=== PATIENT | female | born 2000 | race Caucasian/White ===

== ENCOUNTER 2020-12-02 05:24 | Inpatient (IN) | payer BC ==
[~2020-12-02] VITALS: Ht 160 cm; Wt 104.5 kg
[2020-12-02 05:31] VITALS: BP 146/62
[2020-12-02] MEDS ORDERED: PREN1TAB62 PO (05:39)
[2020-12-02] MEDS ORDERED: SERT100T32 PO (05:39)
[2020-12-02] MEDS ORDERED: MAGN400T36 PO (05:40)
[2020-12-02] MEDS ORDERED: MAGNESIUM SULFATE PMX 4GM/100M 100 ML ONE (05:59)
[2020-12-02] MEDS ORDERED: BETAMETHASONE 6 MG/ML, 5ML IM ONE (05:59)
[2020-12-02] MEDS ORDERED: MAGNESIUM SULF. PMX 20GM/500ML 500 ML IV ONE (05:59)
[2020-12-02] MEDS ORDERED: LACTATED RINGERS 1,000 ML IV PRN (06:00)
[2020-12-02] MEDS ORDERED: PENICILLIN GK 5,000,000 UNITS in DEXTROSE 5% 100 ML IVPB ONE (06:00)
[2020-12-02] MEDS ORDERED: MAGNESIUM SULFATE PMX 2GM/50ML 50 ML IVPB ONE (06:00)
[2020-12-02] MEDS ORDERED: MAGNESIUM SULFATE PMX 4GM/100M 100 ML IVPB ONE (06:00)
[2020-12-02] MEDS: PENICILLIN GK 2,500,000 UNITS in DEXTROSE 5% 100 ML IVPB SCH ×5 (06:00→22:56)
[2020-12-02] MEDS: BETAMETHASONE 6 MG/ML, 5ML IM SCH (06:15)
[2020-12-02 06:18] LABS: BASOPHILS % (AUTO) 1 % (0-1); EOSINOPHILS % (AUTO) 0 % (1-7); LYMPHOCYTES % (AUTO) 16 % (22-44); MEAN CORPUSCULAR HEMOGLOBIN 30.8 pg (27.0-34.8); MEAN CORPUSCULAR HGB CONC 34.4 g/dL (32.4-35.8); MEAN PLATELET VOLUME 8.3 fL (7.4-10.4); MONOCYTES % (AUTO) 6 % (2-9); NEUTROPHILS % (AUTO) 77 % (42-75); PLATELET COUNT 274 x10^3/uL (130-400); RED BLOOD COUNT 4.09 x10^6/uL (3.82-5.3); RED CELL DISTRIBUTION WIDTH 13.1 % (9.6-15.2)
[2020-12-02 06:20] LABS: MD NO
[2020-12-02] MEDS ORDERED: FENTANYL PF 100 MCG/2ML ONE (06:21)
[2020-12-02] MEDS ORDERED: NEWBORN KIT ONE (06:26)
[2020-12-02] MEDS ORDERED: FENTANYL PF 100 MCG/2ML IV PRN (06:30)
[2020-12-02] MEDS: FENTANYL PF 100 MCG/2ML IVPush PRN ×4 (06:30→11:01)
[2020-12-02 06:32] LABS: MICROSCOPIC INDICATED
[2020-12-02] MEDS: LACTATED RINGERS 1,000 ML IV PRN ×2 (06:35→17:32)
[2020-12-02 06:48] LABS: AMPHETAMINE SCREEN, URINE Negative (Negative); BARBITURATE SCREEN, URINE Negative (Negative); BENZODIAZEPINE SCREEN, URINE Negative (Negative); CANNABINOID SCREEN, URINE Positive (Negative); COCAINE SCREEN, URINE Negative (Negative); METHADONE SCREEN, URINE Negative (Negative); OPIATE SCREEN, URINE Negative (Negative)
[2020-12-02] MEDS: MAGNESIUM SULF. PMX 20GM/500ML 500 ML IV SCH ×2 (06:55→15:26)
[2020-12-02] MEDS ORDERED: ONDANSETRON 2MG/ML, 2ML IVPush PRN (07:00)
[2020-12-02 07:10] LABS: ALANINE AMINOTRANSFERASE 17 U/L (12-78); ANION GAP 11 mmol/L (5-15); CHLORIDE 108 mmol/L (98-107); CREATININE 0.58 mg/dL (0.55-1.02)
[2020-12-02 07:11] LABS: BILIRUBIN, DIRECT < 0.1 mg/dL (0.1-0.2)
[2020-12-02 07:13] LABS: ALKALINE PHOSPHATASE 231 U/L (45-117); BILIRUBIN,TOTAL 0.2 mg/dL (0.2-1.0); TOTAL PROTEIN 6.9 g/dL (6.4-8.2)
[2020-12-02] MEDS ORDERED: CALCIUM CARBONATE 500 MG TAB.CHEW ONE (08:08)
[2020-12-02] MEDS: CALCIUM CARBONATE 500 MG TAB.CHEW PO PRN ×3 (08:10→23:35)
[2020-12-02 08:12] LABS: CREATININE,URINE RANDOM 82.3 mg/dL
[2020-12-02] MEDS ORDERED: DIPH25CA61 PO (10:01)
[2020-12-02] MEDS ORDERED: ACETAMINOPHEN 325 MG TABLET ONE (13:10)
[2020-12-02] MEDS ORDERED: ASPI-963 PO (13:13)
[2020-12-02] MEDS ORDERED: FERR324T23 PO (13:14)
[2020-12-02] MEDS ORDERED: ACETAMINOPHEN 325 MG TABLET PO PRN (13:30)
[2020-12-02] MEDS ORDERED: BUTALB/APAP/CAFFEINE 50MG/325MG/40MG ONE (18:03)
[2020-12-02] MEDS: BUTALB/APAP/CAFFEINE 50MG/325MG/40MG PO PRN ×2 (18:06→23:30)
[2020-12-02 20:00] VITALS: BP 135/73
[2020-12-02] MEDS ORDERED: DIPHENHYDRAMINE 25 MG CAPSULE ONE (22:11)
[2020-12-02] MEDS: DIPHENHYDRAMINE 50 MG CAPSULE PO PRN (22:53)
[2020-12-02] MEDS ORDERED: PRENATAL VIT/IRON/FA 1 EACH TABLET ONE (22:54)
[2020-12-03] MEDS: MAGNESIUM SULF. PMX 20GM/500ML 500 ML IV SCH (00:57)
[2020-12-03] MEDS: PENICILLIN GK 2,500,000 UNITS in DEXTROSE 5% 100 ML IVPB SCH ×6 (02:53→21:52)
[2020-12-03] MEDS: BETAMETHASONE 6 MG/ML, 5ML IM SCH (06:16)
[2020-12-03] MEDS: BUTALB/APAP/CAFFEINE 50MG/325MG/40MG PO PRN ×3 (06:20→19:31)
[2020-12-03 07:45] VITALS: BP 114/67
[2020-12-03 08:43] LABS: ALANINE AMINOTRANSFERASE 19 U/L (12-78); ALBUMIN 2.8 g/dL (3.4-5.0); ANION GAP 7 mmol/L (5-15); CHLORIDE 107 mmol/L (98-107); CREATININE 0.58 mg/dL (0.55-1.02)
[2020-12-03 08:45] LABS: ALKALINE PHOSPHATASE 216 U/L (45-117); BILIRUBIN,TOTAL 0.2 mg/dL (0.2-1.0); TOTAL PROTEIN 6.3 g/dL (6.4-8.2)
[2020-12-03 08:57] LABS: CALCIUM 7.7 mg/dL (8.5-10.1)
[2020-12-03] MEDS: SERTRALINE 100MG TABLET PO SCH (08:57)
[2020-12-03] MEDS ORDERED: D5%-LACTATED RINGERS 1,000 ML IV SCH (09:00)
[2020-12-03] MEDS: CALCIUM CARBONATE 500 MG TAB.CHEW PO PRN ×3 (09:01→21:53)
[2020-12-03 09:08] LABS: BASOPHILS % (AUTO) 0 % (0-1); EOSINOPHILS % (AUTO) 0 % (1-7); LYMPHOCYTES % (AUTO) 12 % (22-44); MEAN CORPUSCULAR HEMOGLOBIN 31.4 pg (27.0-34.8); MEAN CORPUSCULAR HGB CONC 34.1 g/dL (32.4-35.8); MEAN PLATELET VOLUME 8.9 fL (7.4-10.4); MONOCYTES % (AUTO) 7 % (2-9); NEUTROPHILS % (AUTO) 81 % (42-75); PLATELET COUNT 272 x10^3/uL (130-400); RED BLOOD COUNT 3.64 x10^6/uL (3.82-5.3); RED CELL DISTRIBUTION WIDTH 13.1 % (9.6-15.2)
[2020-12-03 09:12] LABS: MD NO
[2020-12-03] MEDS ORDERED: FAMOTIDINE 20 MG TABLET ONE (10:17)
[2020-12-03] MEDS: FAMOTIDINE 20 MG TABLET PO SCH ×2 (10:18→20:45)
[2020-12-03] MEDS ORDERED: DOCUSATE 100 MG CAPSULE ONE (17:39)
[2020-12-03] MEDS: DOCUSATE 100 MG CAPSULE PO PRN (17:40)
[2020-12-03] MEDS: SODIUM CHLORIDE FLUSH 3ML SYRINGE IVF SCH (19:32)
[2020-12-03] MEDS: PRENATAL VIT/IRON/FA 1 EACH TABLET PO SCH (20:45)
[2020-12-03] MEDS ORDERED: DIPHENHYDRAMINE 25 MG CAPSULE ONE (21:51)
[2020-12-03] MEDS: DIPHENHYDRAMINE 50 MG CAPSULE PO PRN (21:53)
[2020-12-04] MEDS: FENTANYL PF 100 MCG/2ML IVPush PRN ×4 (02:45→20:49)
[2020-12-04] MEDS: PENICILLIN GK 2,500,000 UNITS in DEXTROSE 5% 100 ML IVPB SCH ×4 (05:40→16:00)
[2020-12-04] MEDS: LACTATED RINGERS 1,000 ML IV PRN (08:47)
[2020-12-04] MEDS: SERTRALINE 100MG TABLET PO SCH (09:08)
[2020-12-04] MEDS: FAMOTIDINE 20 MG TABLET PO SCH ×2 (09:08→22:32)
[2020-12-04] MEDS: CALCIUM CARBONATE 500 MG TAB.CHEW PO PRN (10:25)
[2020-12-04] MEDS ORDERED: morphine SULFATE 10 MG/ML, 1ML ONE (14:56)
[2020-12-04] MEDS ORDERED: PROMETHAZINE 25 MG/ML, 1ML ONE (14:56)
[2020-12-04] MEDS ORDERED: morphine SULFATE 10 MG/ML, 1ML IM PRN (15:00)
[2020-12-04] MEDS ORDERED: PROMETHAZINE 25 MG/ML, 1ML IM PRN (15:00)
[2020-12-04] MEDS: SODIUM CHLORIDE FLUSH 3ML SYRINGE IVF SCH ×2 (15:17→21:00)
[2020-12-04] MEDS: PRENATAL VIT/IRON/FA 1 EACH TABLET PO SCH (21:00)
[2020-12-04] MEDS ORDERED: HYDROXYZINE PAMOATE 50MG CAP PO PRN (22:30)
[2020-12-05] MEDS ORDERED: FENTANYL/BUPIV./NS/PF 250 ML EPIDCONT SCH (03:30)
[2020-12-05] MEDS ORDERED: FENTANYL PF 500 MCG, BUPIVACAINE/PF 0.5%, 30ML 62.5 ML in SODIUM CHLORIDE 0.9% 177.5 ML EPIDCONT SCH (03:30)
[2020-12-05] MEDS: FENTANYL PF 100 MCG/2ML IVPush PRN (03:51)
[2020-12-05] MEDS ORDERED: FENTANYL/BUPIV./NS/PF 0 ML EPIDCONT ONE (03:51)
[2020-12-05] MEDS ORDERED: LIDOCAINE 1%, 20ML ONE (04:01)
[2020-12-05] MEDS ORDERED: MISOPROSTOL 200 MCG TABLET ONE (04:01)
[2020-12-05] MEDS ORDERED: NEWBORN KIT ONE (05:29)
[2020-12-05] MEDS ORDERED: OXYTOCIN 30U/ 0.9% NaCL 500ML 500 ML ONE (05:30)
[2020-12-05] MEDS ORDERED: PENICILLIN GK 2,500,000 UNITS in DEXTROSE 5% 100 ML IVPB SCH (06:00)
[2020-12-05] MEDS ORDERED: SODIUM CITRATE/CITRIC ACID 30 ML UDC PO PRN (07:30)
[2020-12-05] MEDS ORDERED: TERBUTALINE 1 MG/ML, 1ML SQ PRN (07:30)
[2020-12-05] MEDS ORDERED: ONDANSETRON 2MG/ML, 2ML IVPush PRN (07:30)
[2020-12-05] MEDS ORDERED: OXYTOCIN 30U/ 0.9% NaCL 500ML 500 ML IV PRN (07:30)
[2020-12-05] MEDS ORDERED: METOCLOPRAMIDE 5 MG/ML, 2ML IVPush PRN (07:30)
[2020-12-05] MEDS ORDERED: OXYTOCIN 30U/ 0.9% NaCL 500ML 500 ML IV ONE (07:30)
[2020-12-05] MEDS ORDERED: TERBUTALINE 1 MG/ML, 1ML IVPush PRN (07:30)
[2020-12-05] MEDS: FAMOTIDINE 20 MG TABLET PO SCH ×2 (09:00→21:10)
[2020-12-05] MEDS: SODIUM CHLORIDE FLUSH 3ML SYRINGE IVF SCH ×2 (09:00→21:00)
[2020-12-05] MEDS: PRENATAL VIT/IRON/FA 1 EACH TABLET PO SCH ×2 (09:00→11:42)
[2020-12-05] MEDS ORDERED: CARBOPROST TROMETHAMINE 250 MCG/ML, 1ML IM PRN (09:30)
[2020-12-05] MEDS ORDERED: METHYLERGONOVINE 0.2 MG/ML IM PRN (09:30)
[2020-12-05] MEDS ORDERED: ONDANSETRON 2MG/ML, 2ML IV PRN (09:30)
[2020-12-05] MEDS ORDERED: OXYTOCIN 30U/ 0.9% NaCL 500ML 500 ML IV SCH (09:30)
[2020-12-05] MEDS ORDERED: ACETAMINOPHEN 325 MG TABLET PO PRN (09:30)
[2020-12-05] MEDS ORDERED: SIMETHICONE 80 MG CHEW TAB PO PRN (09:30)
[2020-12-05] MEDS ORDERED: DOCUSATE 100 MG CAPSULE PO PRN (09:30)
[2020-12-05] MEDS ORDERED: MISOPROSTOL 200 MCG TABLET PR PRN (09:30)
[2020-12-05] MEDS: IBUPROFEN 600 MG TABLET PO PRN ×3 (10:11→22:35)
[2020-12-05] MEDS: LACTATED RINGERS 1,000 ML IV PRN (10:36)
[2020-12-05 11:10] VITALS: BP 126/77
[2020-12-05] MEDS: SERTRALINE 100MG TABLET PO SCH (12:34)
[2020-12-05 15:45] VITALS: BP 122/76
[2020-12-05] MEDS: OXYcodone/APAP 5/325MG TABLET PO PRN ×2 (16:26→22:35)
[2020-12-05 19:40] VITALS: BP 119/83
[2020-12-05] MEDS: DOCUSATE 100 MG CAPSULE PO PRN (22:35)
[2020-12-06 00:02] VITALS: BP 133/85
[2020-12-06 00:45] LABS: BASOPHILS % (AUTO) 1 % (0-1); EOSINOPHILS % (AUTO) 1 % (1-7); LYMPHOCYTES % (AUTO) 23 % (22-44); MEAN CORPUSCULAR HEMOGLOBIN 31.4 pg (27.0-34.8); MEAN CORPUSCULAR HGB CONC 34.1 g/dL (32.4-35.8); MEAN PLATELET VOLUME 8.2 fL (7.4-10.4); MONOCYTES % (AUTO) 10 % (2-9); NEUTROPHILS % (AUTO) 66 % (42-75); PLATELET COUNT 244 x10^3/uL (130-400); RED BLOOD COUNT 3.54 x10^6/uL (3.82-5.3); RED CELL DISTRIBUTION WIDTH 13.2 % (9.6-15.2)
[2020-12-06 00:50] LABS: MD NO
[2020-12-06] MEDS: DIPHENHYDRAMINE 50 MG CAPSULE PO PRN ×2 (02:19→21:49)
[2020-12-06] MEDS: OXYcodone/APAP 5/325MG TABLET PO PRN ×5 (02:25→21:35)
[2020-12-06] MEDS: SODIUM CHLORIDE FLUSH 3ML SYRINGE IVF SCH ×2 (07:26→21:00)
[2020-12-06 07:30] VITALS: BP 118/72
[2020-12-06] MEDS: IBUPROFEN 600 MG TABLET PO PRN ×3 (08:30→21:34)
[2020-12-06] MEDS: PRENATAL VIT/IRON/FA 1 EACH TABLET PO SCH (08:30)
[2020-12-06] MEDS: FAMOTIDINE 20 MG TABLET PO SCH ×2 (08:30→21:00)
[2020-12-06] MEDS: SERTRALINE 100MG TABLET PO SCH (08:30)
[2020-12-06 20:00] VITALS: BP 129/79
[2020-12-06] MEDS: DOCUSATE 100 MG CAPSULE PO PRN (21:34)
[2020-12-07] MEDS: OXYcodone/APAP 5/325MG TABLET PO PRN ×4 (05:07→18:24)
[2020-12-07] MEDS: IBUPROFEN 600 MG TABLET PO PRN ×3 (05:08→18:24)
[2020-12-07 08:30] VITALS: BP 137/70
[2020-12-07] MEDS: FAMOTIDINE 20 MG TABLET PO SCH (08:57)
[2020-12-07] MEDS: SERTRALINE 100MG TABLET PO SCH (08:57)
[2020-12-07] MEDS: PRENATAL VIT/IRON/FA 1 EACH TABLET PO SCH ×2 (08:57→09:00)
[2020-12-07] MEDS: DOCUSATE 100 MG CAPSULE PO PRN (08:58)
[2020-12-07] MEDS ORDERED: DOCU-131 PO (09:39)
[2020-12-07] MEDS ORDERED: IBUP-1222 PO (09:39)
[2020-12-07] MEDS ORDERED: DIPH,PERTUSS(ACELL),TET VAC/PF NC IM-VACC ONE ×2 (15:30→20:49)
[2020-12-07 19:37] VITALS: BP 136/84
== END 2020-12-07 21:15 | disposition home or self-care (01) | DRG 805 ==
LOC: LDOP 05:24 → LDIP 05:59 → 2NW 12-03 07:42 → LDIP 12-03 07:59 → 2NW 12-05 10:54
PROVIDERS: ADMIT Obstetrics & Gynecology Maternal & Fetal Medicine; ATTEND Obstetrics & Gynecology Maternal & Fetal Medicine
PROC: 10E0XZZ Delivery of Products of Conception, External Approach (ICD-10-PCS; principal; 2020-12-05)
PROC: 0KQM0ZZ Repair Perineum Muscle, Open Approach (ICD-10-PCS; 2020-12-05)
PROC: 10H07YZ Insertion of Other Device into Products of Conception, Via Natural or Artificial Opening (ICD-10-PCS; 2020-12-05)
PROC: 3E0R3BZ Introduction of Anesthetic Agent into Spinal Canal, Percutaneous Approach (ICD-10-PCS; 2020-12-05)
PROC: 00HU33Z Insertion of Infusion Device into Spinal Canal, Percutaneous Approach (ICD-10-PCS; 2020-12-05)
DX: O76 Abnormality in fetal heart rate and rhythm complicating labor and delivery (principal); O60.14X0 Preterm labor third trimester with preterm delivery third trimester, not applicable or unspecified; Z37.0 Single live birth; O99.824 Streptococcus B carrier state complicating childbirth; O99.344 Other mental disorders complicating childbirth; F32.9 Major depressive disorder, single episode, unspecified; Z20.822 Contact with and (suspected) exposure to COVID-19; F41.9 Anxiety disorder, unspecified; Z3A.35 35 weeks gestation of pregnancy; O70.1 Second degree perineal laceration during delivery
CPT/HCPCS: 36415; J7121; 76819; 80053; 80307; 81001; 82248; 82570; 83735; 84156; 84550; 85025; 85384; 86592; 86850; 86900; 87081; 87086; 87147; 87635; 90715; G0378; J0702; J2405; J2540; J2550; J3010; J2270; J2590; J3475; J7120